=== PATIENT | female | born 1945 | race Caucasian/White ===

== ENCOUNTER 2018-11-15 08:48 | Emergency (ER) | payer MEDICARE, OTHER ==
[2018-11-15] MEDS: ONDANSETRON (ODT) 4 MG TAB ODT (09:24)
[2018-11-15] MEDS: HYDROCODONE/APAP (5/325) TAB PO (09:24)
== END 2018-11-15 10:34 | disposition home or self-care (01) ==
LOC: FTE 08:48
DX: M19.90 Unspecified osteoarthritis, unspecified site (principal); J45.909 Unspecified asthma, uncomplicated; E11.9 Type 2 diabetes mellitus without complications; Z79.82 Long term (current) use of aspirin; Z79.84 Long term (current) use of oral hypoglycemic drugs
CPT/HCPCS: 29505; 73562; 99283-25